=== PATIENT | male | born 1950 | race Caucasian/White ===

== ENCOUNTER 2017-08-11 10:37 | Outpatient (CLI) | payer BC ==
--- NOTE | 2017-08-11 13:08 | CT ---
CT CERVICAL SPINE: Date: 08-11-17 Comparison: None. History: Cervical radiculopathy, severe neck pain. History of prior cervical spine surgery. Technique: Serial axial CT imaging is provided at 2 mm intervals from skull base through lung apices without contrast. Coronal and sagittal reformatted imaging obtained. FINDINGS: Anterior discectomy and fusion hardware is present at the C5-6 and C6-7 level. The left screw associ ated with the C7 vertebral body is slightly backed away from the fusion plate, the head of the screw not completely flush with the fusion plate, probably backed away in the 3-4 mm range, best seen on axial image 81. Craniocervical junction and atlantoaxial interspace demonstrate no acute findings. There is degenera tive change at the atlantoaxial interspace. The occipital condyles, dense, and C1-2 articulation demonstrate no acute findings. The cervicothoracic junction is intact. There is no prevertebral soft tissue swelling. No anterolist hesis or retrolisthesis is seen. There is a heterogeneous lesion within the C3 vertebral body approaching the left C3 pedicle which i s of mixed density, demonstrating primarily sclerotic components with areas of more lucent density. A hemangioma is favored at the C3 vertebral level. This measures up to 1.4 cm in AP dimension. This could be confirmed with MRI. Evaluation for central canal and/or neural foraminal stenosis is limited on routine CT. C2-3: There is moderate facet hypertrophic change on the left. There is mild associated left neural foraminal stenosis. No central canal or right neural foraminal stenosis. C3-4: There is significant left sided facet hypertrophy. There is questionable mild left neural fora miguel stenosis. No osseous cause of significant central canal or right neural foraminal stenosis. C4-5: Disc space narrowing and vacuum disc formation noted. Mild facet and uncal vertebral osteophyt e formation on the left with probable mild left neural foraminal stenosis. No osseous cause of signi ficant central canal or right neural foraminal stenosis. C5-6: Mild bilateral uncal vertebral osteophyte formation, right greater than left. There is disc sp arash narrowing. Mild bilateral neural foraminal stenosis suspected. C6-7: There is disc space narrowing and vacuum disc formation. Mild uncal vertebral osteophyte forma tion noted on the left. No osseous cause of significant central canal stenosis. Probable mild bilate ral neural foraminal stenosis. C7-T1: No osseous cause of significant central canal stenosis or left neural foraminal stenosis. The re is moderate right facet hypertrophy with probable mild associated right neural foraminal stenosis . IMPRESSION: 1. Post-operative and degenerative change seen within the cervical spine. Of note, the left C7 screw is not flush with the plate, potentially secondary to backing away from the plate. No comparison im aging is available. 2. Lesion of mixed lucency and sclerosis within the C3 vertebral body. Hemangioma is favored. This c ould be confirmed with cervical spine MRI. POS: ALISON
== END 2017-08-11 10:38 | disposition home or self-care (01) ==
LOC: TBSIIMAG 10:37
PROVIDERS: ATTEND Neurological Surgery
DX: M47.22 Other spondylosis with radiculopathy, cervical region (principal); Z98.1 Arthrodesis status; M50.91 Cervical disc disorder, unspecified, high cervical region; D18.09 Hemangioma of other sites
CPT/HCPCS: 72125

== ENCOUNTER 2018-03-30 08:42 | Outpatient (CLI) | payer BC ==
[2018-03-30 09:19] LABS: Estimated GFR-MDRD - POC Greater than 90
[2018-03-30] MEDS ORDERED: Gadobenate Dimeglumine 529 MG/1 ML (20ML VIAL) ONE (10:44)
--- NOTE | 2018-03-30 11:50 | MRI ---
MRI LUMBAR SPINE WITH AND WITHOUT CONTRAST: Technique: Multiplanar, multisequential imaging of the lumbar spine obtained. Post contrast images we re obtained after administration of 20 cc of MultiHance IV. Indications: Schwannoma. Low back pain. Pain in right leg. Comparison: None. FINDINGS: Lumbar vertebrae maintain normal height. Vertebral body signal is normal. Slight anterolisthesis of L 5-S1. Degenerative disc changes with loss of disc space at L4-5 and L5-S1. L1-2: No significant disc bulge or protrusion. Mild facet arthrosis. No central canal or foraminal st enosis. L2-3: Mild diffuse disc bulge flattens the thecal sac. Mild facet hypertrophy. Mild central canal sakina nosis. Foraminal encroachment due to the diffuse disc bulge, slightly more pronounced on the left. L3-4: Mild disc bulge abuts the anterior thecal sac. Asymmetric bulge to the right appears to mildly displace the traversing right L4 nerve root and also exhibits mild right foraminal encroachment. Mild facet hypertrophy. Mild central canal stenosis. Just inferior to the L3-4 disc is an enhancing nodular mass in the posterior spinal canal to the righ t of midline which measures approximately 7 mm diameter. This appears intradural. This resides within the nerve roots and would be consistent with a schwannoma which is the clinical history provided. L4-5: There is a mild diffuse disc bulge flattening the anterior thecal sac. Disc osteophyte complex projects to the right and does encroach into the right foramen and may contact the exiting right L4 n erve root. Facet and ligamentous hypertrophy results in mild central canal stenosis. L5-S1: Slight anterolisthesis. Diffuse disc bulge. Facet hypertrophy. Mild central canal stenosis. Bi lateral foraminal stenosis due to the broad based bulge, slight listhesis, and facet hypertrophy. A high T2 circumscribed lesion from the superior right kidney measuring up to 5 cm is suggestive of a right renal cyst. IMPRESSION: 1. Disc bulge and mild central canal and foraminal encroachment seen at several levels as described leidy ngo. 2. Enhancing intradural nodule in the posterior spinal canal to the right of midline just inferior to the L3-4 disc space is noted as described above. This would be consistent with a schwannoma as provi ded in the clinical history. Comparison with prior exams would be helpful to confirm stability if theo ilable. POS: C
== END 2018-03-30 08:43 | disposition home or self-care (01) ==
LOC: TBSIIMAG 08:42
PROVIDERS: ATTEND Neurological Surgery
DX: D36.10 Benign neoplasm of peripheral nerves and autonomic nervous system, unspecified (principal); M50.80 Other cervical disc disorders, unspecified cervical region; M99.81 Other biomechanical lesions of cervical region; M48.02 Spinal stenosis, cervical region
CPT/HCPCS: 72158; 82565; A9579

== ENCOUNTER 2020-05-24 07:33 | Outpatient (CLI) | payer BC, OTHER ==
[2020-05-24 17:53] LABS: SARS-CoV-2 MS2 Positive; SARS-CoV-2 N Gene Negative; SARS-CoV-2 S Gene Negative; SARS-CoV-2 by NAA Not Detected (NotDetected); SARS-CoV-2 orf1ab Negative
== END 2020-05-24 07:34 | disposition home or self-care (01) ==
LOC: LABBT 07:33
PROVIDERS: ATTEND Neurological Surgery
DX: M54.12 Radiculopathy, cervical region (principal); Z20.828 Contact with and (suspected) exposure to other viral communicable diseases
CPT/HCPCS: 87635; U0003